=== PATIENT | male | born 1975 | race American Indian/Alaskan Native ===

== ENCOUNTER 2022-01-16 10:42 | Outpatient (CLI) | payer OTHER ==
--- NOTE | 2022-01-16 13:12 | XRay Report ---
Lumbar spine 4 views INDICATION: Back pain FINDINGS: Alignment appears normal. No compression fractures seen. No subluxation. Visualized sacrum appears normal. Nonobstructing right renal stones. Signer Name: Charles Payan MD Signed: 01/16/2022 1:08 PM Workstation Name: [facility] [place] [id number]
== END 2022-01-16 10:43 | disposition home or self-care (01) ==
LOC: XRAY 10:42
PROVIDERS: ATTEND Internal Medicine
DX: M54.50 Low back pain, unspecified (principal)
CPT/HCPCS: 72100